=== PATIENT | male | born 1945 | race Caucasian/White ===

== ENCOUNTER → 2018-12-09 13:44 | Outpatient (CLI) | payer MEDICARE, SELFPAY ==
--- NOTE | 2018-12-09 | DI.CT.S_ITS ---
PROCEDURE: CT UE LT WO CON INDICATIONS: Primary osteoarthritis, left shoulder TECHNIQUE: Noncontrast 1-1.5 mm thick sections acquired from the acromioclavicular joint to the inferior scapula, with coronal and sagittal reformatting. COMPARISON: [facility] [place], CR, XR SHOULDER 2+ VIEWS LEFT, 11/19/2017, 17:11. FINDINGS: Image quality: Excellent. Bones: No fracture or focal osseous destruction. Severe left glenohumeral joint degeneration with subchondral sclerosis, marked spurring and narrowing of the joint space. There is bulky osteophyte formation in particular at the inferior margin of the humeral head. Degenerative cystic change present at the greater tuberosity. There is also severe AC joint degeneration with presumed ununited osteophyte or heterotopic ossification. There is diffuse osteopenia Soft tissues: Visualized portions of the left lung are clear, save for scattered scarring/atelectasis. No axillary lymphadenopathy. Heterotopic ossification versus loose bodies seen in the subcoracoid region. Coronary artery calcifications are present. IMPRESSION: Severe AC and glenohumeral joint degeneration with bulky osteophyte formation in particular at the inferior aspect of the humeral head. Additional areas of focal ossification present in the subcoracoid region could represent large loose body versus heterotopic ossification. Diffuse osteopenia. Dictated by: Jesus Manuel Lopez M.D. on 12/09/2018 at 15:01 Approved by: Jesus Manuel Lopez M.D. on 12/09/2018 at 15:05
== END ==
PROVIDERS: PCP Family Medicine; Visit Provider Orthopaedic Surgery
DX: M19.012 Primary osteoarthritis, left shoulder (principal); M85.812 Other specified disorders of bone density and structure, left shoulder
CPT/HCPCS: 73200

== ENCOUNTER 2019-01-25 11:03 | Inpatient (IN) | payer MEDICARE, SELFPAY ==
[2019-01-11 13:44] VITALS: BMI 26.9
[2019-01-25] VITALS (15 sets, daily range): BP systolic 116–158; BP diastolic 57–89; PULSE 60–78; RESP 13–20; TEMP 36.1–36.8; O2SAT 91–100; BMI 26.9
--- NOTE | 2019-01-25 06:00 | DI.RAD.S_ITS ---
PROCEDURE: XR SHOULDER LT 1V INDICATIONS: post op total shoulder TECHNIQUE: 3 views of the shoulder were acquired. COMPARISON: [facility] [place], CR, XR SHOULDER 2+ VIEWS LEFT, 11/19/2017, 17:11. FINDINGS: Bones: There is left shoulder arthroplasty with prosthesis in anatomic alignment. No fractures or dislocations. No suspicious bony lesions. Visualized ribs appear intact. Soft tissues: No suspicious soft tissue calcifications. IMPRESSION: Left shoulder arthroplasty with prosthesis in anatomic alignment. Dictated by: Lai Saab M.D. on 01/25/2019 at 16:38 Approved by: Lai Saab M.D. on 01/25/2019 at 16:39
[2019-01-25] MEDS: LACTATED RINGERS 1,000 ML 42 ML IV ×2 (11:00→14:26)
[2019-01-25] MEDS: PREGABALIN 75 MG CAPSULE PO (12:06)
[2019-01-25] MEDS: CELECOXIB 200 MG CAPSULE PO (12:06)
--- NOTE | 2019-01-25 12:10 | PM.PREOP ---
Pre-operative Note Interval Note History & Physical reviewed/Exam performed by Physician: Yes Changes to H&P: No
--- NOTE | 2019-01-25 12:48 | SUR.PREOP ---
Block start time [1231] . Monitoring initiated and maintained throughout procedure. Oxygen and medications given per anesthesiologist instructions. Patient remained stable throughout procedure, no adverse reactions noted. Block end time 1242
[2019-01-25] MEDS: CEFAZOLIN 2 GM/100 ML FROZ.PIGGY IV (12:50)
--- NOTE | 2019-01-25 13:17 | SUR.OPER ---
Beach chair with Gracie/Satnam shoulder positioner. Lower body on padded OR bed. Head in foam padded head cradle, secured with straps. Non-operative arm secured <90 degrees abduction. Pillow under knees. Safety belt at thigh. Cloth tape over blanket over lower legs.
[2019-01-25] MEDS: TRANEXAMIC ACID 1,000 MG VIAL 1000 MG INJ ×2 (13:23→14:15)
[2019-01-25] MEDS: BUPIVACAINE 0.5% W/ EPI (PF) VIAL 30 ML INJ (13:23)
[2019-01-25] MEDS: THROMBIN (RECOMBINANT) 5,000 UNIT VIAL 5000 UNIT TOP (13:24)
--- NOTE | 2019-01-25 13:36 | PM.PROC.1 ---
Procedures Date/Time Date of procedure: 01/25/19 Time of procedure: 12:30 General Procedure description: Ultrasound guided interscalene brachial plexus nerve block for post op pain control after left total shoulder arthroplasty by Dr. Mohamud. Risk and benefits of procedure discussed with patient. ASA monitoring applied to patient. 02 given via nasal cannula. 1 mg Versed and 50 mcg fentanyl given for procedural sedation. Skin site was prepped with chlorhexidine and allowed to fully dry. Sterile gloves, mask, hat and probe cover were used to maintain sterility. 2% lidocaine and 30ga needle was used to make a small skin wheal at needle insertion site. Under ultrasound guidance, a 21ga 50mm Pajunk needle was directed into the interscalene groove (middle/anterior scalenes) near the brachial plexus. Patient reported no parasthesias. After negative aspiration, 20 mL 0.5% ropivicaine and 10mg dexamethasone were injected around brachial plexus. Patient tolerated procedure well.
--- NOTE | 2019-01-25 15:17 | P.OP_ITS ---
Operative Date/Time/Diagnoses Date of procedure: 01/25/19 Time of procedure: 15:00 Pre-op diagnosis: Left shoulder osteoarthritis Post-op diagnosis: same Procedure & Clinicians Procedure: Left total shoulder replacement Same procedure as scheduled: Yes Indications: The patient has had progressively worsening left shoulder pain with radiographic changes consistent with arthritis. Non-operative management has failed and the patient has requested total shoulder replacement. The risks, benefits and alternatives to surgery were discussed with the patient prior to proceeding. Risks discussed included, but were not limited to, failure to relieve pain, stiffness, infection, nerve damage, deep venous thrombosis, pulmonary embolism, stroke, coma, heart attack, permanent paralysis and , as well as the potential need for eventual revision of the prosthetic. Surgeon: David Mohamud Consumer Affairs Manager: Graciela Ambriz Click Yes if Unassisted: No Anesthesia Type: General, Peripheral nerve block and Local Operative Notes Findings: Severe osteoarthritis with flattening of the humeral head and extremely large humeral osteophytes. Closure Type: primary Specimen(s): none sent Prosthetic devices, grafts, tissues, transplants, or devices: Implants used in this procedure were manufactured by the [employer] and included an Altivate short stem total shoulder system with a size 16 short stem, a neutral neck, a an offset 50 x 18 mm humeral head and a 50 mm all polyethylene E plus glenoid. Two glenoid were opened but only 1 was implanted. Applied: implant(s) Estimated Blood Loss (mL): 200 Blood products transfused: none Procedure in detail: The patient was seen in the pre-operative area, where the patient identified the left shoulder as the operative site and this was marked with my initials. The patient received pre-operative antibiotics, underwent an interscalene block, and was taken to the operating room and placed on the operative table in the supine position. After satisfactory anesthesia, a full ?time out? was performed. The patient was repositioned in the ?beach chair? position using a dedicated positioner. All pressure points were well padded, and the knees were slightly bent to prevent tension on the sciatic nerves. The left arm was prepared from the fingers to the base of the neck with ChloroPrep in the usual fashion and draped through sterile drapes. An approximately 15 cm incision was created, starting at the clavicle above the coracoid process and extended towards the deltoid insertion. The deltopectoral interval was used to access the shoulder. The cephalic vein was taken medially. A self retaining retractor was placed. The upper centimeter of the pectoralis major tendon was released. The ?three sisters? were identified and cauterized. The axillary nerve was palpated and protected throughout the case. The biceps was released from its groove and tenodesed over the top of the pectoralis major tendon. The subscapularis was released from the lesser tuberosity with a subscapularis peel and tagged for later repair. The shoulder was dislocated and a cutting guide was used for the proximal humeral osteotomy in 30 degrees of retroversion. A starter Reamer was used followed by the cylindrical reamers. This continued in larger sizes in till cortical bite was achieved. Sequential broaching was then performed until a line to line fit with the Reamer occurred. A proximal humeral protector was then placed. We then removed the self-retaining retractor and placed retractors to access the glenoid. The subscapularis was released with a ?360 degree release? with care being taken to protect the axillary nerve with the inferior portion of this procedure. The remnant of labrum and biceps stump were removed. The appropriate size reamer was chosen with the glenoid sizer, and the guide pin placed. The glenoid was appropriately reamed. The guide for the peripheral holes was used and the center hole enlarged. The trial glenoid was placed with good stability. We then cemented the final implant into place after irrigating the peg holes and drying them with thrombin-soaked Gelfoam. Unfortunately due to the patient's very tight shoulder access to the glenoid was difficult and the 1st glenoid prosthetic did not fully seat. This was removed, the peg holes were cleaned of bone cement using a drill and the glenoid implantation was repeated, this time successfully, with a 2nd prosthetic. We returned our attention to the humerus, a trial humeral head was applied and a trial reduction performed. Stability was checked with 50% posterior translation with spontaneous reduction, 45? external rotation at the side with the subscapularis in the repaired position and 70? internal rotation in the ?scarecrow position?. This was felt to be satisfactory and the appropriate implants were opened. Five holes were drilled along the humeral osteotomy and #2 TiCron sutures placed for eventual subscapularis repair. The humeral prosthetic was impacted into the humerus. The humeral head was applied when the stem was still slightly proud and impacted to both seat the head and fully seat the stem. The joint was relocated one final time. The joint was irrigated and the subscapularis repaired to the previously placed sutures using Alli-Charles sutures. The top of the subscapularis was closed to the leading edge of the supraspinatus with a figure of 8 #2 TiCron to close the rotator interval. A deep drain was placed and brought out supero-laterally. The deltopectoral interval was closed with interrupted 0 Vicryl. The subcutaneous layer was closed with 3-0 Vicryl, and the skin with a running 3-0 V-Lock suture and SteriStrips. An Aquacel Ag dressing was applied, the patient?s arm was placed in a sling, and the patient was taken to recovery having tolerated the procedure well. Complications: other (Incomplete seating of the 1st in glenoid prosthetic. This was addressed as noted in the procedure paragraphs above) Condition: stable Disposition: PACU Plan for aftercare: The patient will be maintained on a standard total shoulder replacement protocol with passive range of motion limited to 90 degrees forward flexion, 0 degrees external rotation at the side, 0 degrees abduction and internal rotation to the body. The patient will receive aspirin and sequential compression devices for DVT prophylaxis. The patient will be discharged home when safe for the home environment, likely tomorrow.
--- NOTE | 2019-01-25 15:46 | SUR.PHASEI ---
REPORT CALLED TO POONAM MELENDEZ ON ICU FLOOR. PT IN STABLE CONDITION, VSS. IV SITE CLEAR AND INFUSING WITHOUT DIFFICULTLY. DRSG TO SURGICAL SITE OBSERVED TO BE C/D/I. HEMAVAC IN PLACE AND INTACT. PT DENIES ANY NAUSEA OR PAIN/DISCOMFORT AT THIS TIME. PT SITTING UP IN BED AND TALKING TO RN. PT APPEARS COMFORTABLE AT THIS TIME.
--- NOTE | 2019-01-25 15:54 | SUR.PHASEI ---
PT TRANSFERRED TO ICU IN STABLE CONDITION BY POONAM WILCOX.
--- NOTE | 2019-01-25 16:04 | PC.NURSE ---
Addendum entered by Lizette Rush R.N. 01/25/19 19:13: 1912 - Patient transferred to room 219. Taken upstairs in wheelchair with all belongings by nursing staff. Report given to receiving RN Amber. Original Note: 1600 - Patient brought over from PACU in bed by nursing staff. Alert and oriented with pleasant affect. Denies pain or nausea at this time. Able to move all extremities, but states he has some numbness to left arm and hand. Dressing to left shoulder C/D/I. Hemovac in place draining sanguinous fluid and sling in place. Oriented to room and call light. Call light within reach. at bedside.
[2019-01-25] MEDS: LACTATED RINGERS 1,000 ML 125 ML IV (16:38)
[2019-01-25] MEDS: ACETAMINOPHEN 325 MG TABLET PO ×2 (16:39→20:17)
[2019-01-25] MEDS: ASPIRIN EC 81 MG TABLET PO (20:14)
[2019-01-25] MEDS: DOCUSATE 100 MG CAPSULE PO (20:14)
[2019-01-25] MEDS: GABAPENTIN 300 MG CAPSULE 900 MG PO (20:15)
--- NOTE | 2019-01-25 20:58 | PC.NURSE ---
Pt arrived from ICU via W/C. Denies any discomfort at this time. Dsg to left shoulder CDI, arm in sling. IV LR @ 125cc/hr via pump into RFA infusing w/o incidence. Hemavac intact/patent. Stable post op course. Call light w/in reach. Bed alarm on for pt safety. Continue w/plan of care.
[2019-01-26] MEDS: LACTATED RINGERS 1,000 ML 125 ML IV (01:04)
[2019-01-26] MEDS: ACETAMINOPHEN 325 MG TABLET PO ×3 (03:08→08:26)
[2019-01-26] MEDS: OXYCODONE IR 5 MG TABLET PO (03:44)
[2019-01-26 05:21] LABS: Hematocrit 37.8 % (41-53); Hemoglobin 12.8 g/dL (13.5-17.5); Mean Corpuscular Hemoglobin 32.6 PG (26-34); Mean Corpuscular Volume 95.8 fL (80-100); Platelet Count 184 X10^3/uL (150-400); Red Blood Cell Count 3.94 X10^6/uL (4.5-5.9); Red Cell Distribution Width 13.2 % (11.6-14.8)
[2019-01-26 05:58] VITALS: BP 131/76; PULSE 62; RESP 16; TEMP 36.3; O2SAT 96
[2019-01-26 07:40] VITALS: BP 136/68; PULSE 65; RESP 15; TEMP 36.3; O2SAT 96
[2019-01-26] MEDS: ASPIRIN EC 81 MG TABLET PO (08:27)
[2019-01-26] MEDS: DOCUSATE 100 MG CAPSULE PO (08:27)
[2019-01-26] MEDS: MELOXICAM 7.5 MG TABLET 15 MG PO (08:27)
[2019-01-26] MEDS: LORATADINE 10 MG TABLET PO (08:27)
--- NOTE | 2019-01-26 09:20 | PT.IIE ---
Current Diagnoses Primary osteoarthritis, right shoulder (01/25/19) Surgery Performed Operation Date: 01/25/19 13:15 Actual Procedures p Total Shoulder Arthroplasty(Left) - David Mohamud MD Surgical History (Last Updated 01/11/19 @ 14:26 by Nemo Villanueva RN) History of colonoscopy (Acute) Hx of toe surgery (Acute) Hx of tonsillectomy (Acute) Medical History (Last Updated 01/11/19 @ 14:25 by Nemo Villanueva RN) Arthritis (Acute) GERD (gastroesophageal reflux disease) (Acute) Hearing impaired (Acute) Insomnia (Acute) Lower back pain (Acute) Numbness (Acute) Osteoarthritis (Acute) RLS (restless legs syndrome) (Acute) Trigger finger, left (Acute) Physical Therapy Inpatient Evaluation/Re-Eval M1 PT/OT-IP Prior Functional Status Start: 01/26/19 12:43 Freq: NEEDED Status: Active Protocol: Document 01/26/19 12:44 [facility] (Rec: 01/26/19 13:01 [facility] [id number]) Medical Review Prior Functional Status Medical History Reviewed Yes Communication Independent. Mobility and Gait Independent with no device. Activities of Daily Living and IADL's Independent. Prior Functional Level (Other details) Pt was independent with all needs prior. Social History Household Members spouse children Living Arrangements House Number of Floors (Floors) One Floor Number of Stairs To Enter/Railing? One step. Home Environment High Toilet Tub/Shower Home Equipment Hand Held Shower M1 PT/OT-IP Prior Functional Status Start: 01/26/19 13:04 Freq: NEEDED Status: Active Protocol: Document 01/26/19 09:20 AB (Rec: 01/26/19 13:13 AB [id number]) Medical Review Prior Functional Status Medical History Reviewed Yes Communication able to make needs known Mobility and Gait pt stated that he is independent with all mobilities and ambulation without AD Social History Household Members spouse children Living Arrangements House Number of Floors (Floors) One Floor Number of Stairs To Enter/Railing? One step to enter Home Environment High Toilet Tub/Shower Home Equipment Tub Transfer Clear Coat Sprayer Held Shower Employment Status Retired Additional Social History Comment pt has an adjustable bed M2 PT-IP Current Condition Start: 01/26/19 13:04 Freq: NEEDED Status: Active Protocol: Document 01/26/19 09:20 AB (Rec: 01/26/19 13:13 AB [id number]) Physical Therapy Current Condition Current Condition Evaluation Date 01/26/19 Treatment Diagnosis s/p L TSR; difficulty in walking Onset Date 01/25/19 Precautions Shoulder Precautions Sling PROM Internal Rotation to Body No External Rotation No Abduction Forward Flexion to 90 degrees Pendulums Brace L sling M3 PT-IP Subjective Start: 01/26/19 13:04 Freq: NEEDED Status: Active Protocol: Document 01/26/19 09:20 AB (Rec: 01/26/19 13:13 AB [id number]) Subjective Physical Therapy Visit Type Type Initial Evaluation Visit Start Time 09:20 Visit Stop Time 10:00 Total Visit Minutes 40 Number of ACCOUNTING INTERN Visits 0 Physical Therapy Visit Comments Patient Comments pt agreeable to do PT Therapy Pain Assessment Pain Present Pain Present Denied Pain M4 PT-IP Mobility and Gait Start: 01/26/19 13:04 Freq: NEEDED Status: Active Protocol: Document 01/26/19 09:20 AB (Rec: 01/26/19 13:13 AB [id number]) PT-Bed Mobility Assessment Supine to Sit Supine to Sit Independent Sit to Supine Sit to Supine Independent Scooting Scooting to Edge of Bed Standby Assistance Scooting Up and Down in Bed Standby Assistance PT-Transfer Assessment Sit to and From Stand Sit to and from Stand Independent Equipment Transfer Assistive Device None Gait Belt Orthotic/Prosthetic Devices or Brace: Yes Transfer Ability Level of Assist Standby Assistance Gait Assessment Gait Gait Assistance Required: Standby Assistance Distance (Feet) 200 Able to Maintain Weight Bearing Status No During Gait Assistive Devices Assistive Device Gait Belt Front Wheeled Walker Orthotic/Prosthetic Devices or Brace: Yes Factors Limiting Gait Function Factors Limiting Gait Function Limited Range of Motion Comments Gait Comments L sling on Stair Climbing Assessment Evaluation Level of Assist On Stairs Standby Assistance Devices Stair Climbing Assistive Devices None Technique/Endurance Stair Climbing Direction Ascend and Descend Stair Climbing Technique Step Over Step Number of Steps Climbed 3 Query Text: Stair Climbing Set # Repetitions (reps) 1 PT-Balance Assessment Sitting Balance and Reactions Static Sitting Balance Ability Good Dynamic Sitting Balance Ability Good Standing Balance and Reactions Static Standing Balance Ability Good Dynamic Standing Balance Ability Fair Device Used without AD M5 PT-IP Objective Assessments Start: 01/26/19 13:04 Freq: NEEDED Status: Active Protocol: Document 01/26/19 09:20 AB (Rec: 01/26/19 13:13 AB [id number]) Orientation Orientation/Cognition Level of Alertness Alert Orientation Name Age Birthday Month Date Year Day of Week Place Situation Language Function Ability No Deficits Noted Safety Awareness Decreased Safety Awareness Memory Description No Deficits Noted Comments have to be reminded of L shoulder precautions Gross Range of Motion Lower Extremity ROM Assessment Within Functional Limits Strength Lower Extremity Strength Assessment Within Functional Limits Coordination Assessment Gross Coordination Gross Coordination WNL Sensation Assessment Sensation Gross Sensation WNL Muscle Tone Muscle Tone WNL Yes M6 PT-IP Treatment Start: 01/26/19 13:04 Freq: NEEDED Status: Active Protocol: Document 01/26/19 09:20 AB (Rec: 01/26/19 13:13 AB [id number]) Physical Therapy Treatment Education Education Provided Precautions Weight Bearing Status Safety Brace Education Don[place] Patient Caregiver Other Treatments Other Treatment Performed educated pt and spouse on donning/doffing of L shoulder sling. spouse assisted pt with sling and was able to todd with cues M7 PT-IP Assessment and Plan Start: 01/26/19 13:04 Freq: NEEDED Status: Active Protocol: Document 01/26/19 09:20 AB (Rec: 01/26/19 13:13 AB [id number]) PT Summary Assessment and Plan Potential Rehabilitation Potential Good Status of Condition at Evaluation Stable Summary Impairments Pain ROM Strength Balance Coordination Sensation Tone Cognition Bed Mobility Transfers Gait Activity Tolerance Assessment Summary pt requiring SBA with mobility and plans to go home with spouse to assist him. pt requiring SBA with mobility and may go home when medically stable. Goals Transfer Goal Independent Gait Goal Independent Gait Distance 300 Other Goals up/down 1 step without rails Days to Meet Goals 3 Frequency of Treatment Frequency Of Treatment Twice a Day Treatment Plan Physical Therapy Treatment Plan Bed Mobility Training Transfer Training Gait Training Therapeutic Exercise Balance Retraining Post Op Education Discharge Planning Hot or Cold Pack Neuromuscular Re-ed Coordination Retraining Manual Therapy Recommendations To Nursing Amount of Assist Needed Standby Assistance Discharge Recommendations PT Discharge Recommendations Home with Assistance
--- NOTE | 2019-01-26 09:42 | PM.DS.1 ---
History of Present Illness Date Patient Seen: 01/26/19 Time Patient Seen: 09:43 Chief complaint: [id number] Narrative: Hospital day 2, postop day 1 following left total shoulder arthroplasty by Dr. Mohamud. Patient has remained stable postoperatively. Pain controlled with oxycodone 5 mg and Tylenol. Patient feels he is ready for discharge home today. He is scheduled to go to [facility] in [place]. Discharge Providers Date of admission: 01/25/19 11:03 Discharge Date: 01/26/19 Primary care physician: Julissa Hodge MD Consults: 01/25/19 16:00 Consult to Discharge Planning Routine Comment: Consult to Physical Therapy Evaluate & Treat Comment: Physician Instructions: Evaluate and Treat 01/26/19 09:42 Consult to Occupational Therapy Evaluate & Treat Comment: Physician Instructions: Evaluate and treat Discharge provider: Yordy Saldivar PA-C Summary Discharge Diagnosis: Status post left total shoulder arthroplasty Hospital Course: Patient brought to hospital on 01/25/2019 for above-noted surgery. He remained stable postoperatively. Progressed well next day with good pain control. Ready for discharge home on postop day 1. Status at Discharge Cognitive/behavioral status at discharge: oriented Overall status at discharge: patient is progressing back to baseline Time Spent with Patient Less than 30 minutes Exam Vital Signs (past 8 hours): - 01/26/19 05:58 01/26/19 07:40 Temperature 97.4 F L 97.3 F L Pulse Rate 62 65 Respiratory Rate 16 15 Blood Pressure 131/76 136/68 Pulse Oximetry 96 96 Oxygen Delivery Method Room Air Oxygen Flow Rate 0 Narrative Exam Narrative: Alert, oriented no acute distress resting in bed. Left shoulder. Aquacel dressing in place is dry without drainage or inflammation. Hemovac in place with decreased drainage. Arm is in sling. Hand Bander strong and equal. Good pulses and sensation to the hands. Objective Labs Result Diagrams: 01/26/19 04:50 Labs: Laboratory Results - last 24 hr 01/25/19 01/26/19 16:18 04:50 WBC 11.0 RBC 3.94 L Hgb 12.8 L Hct 37.8 L MCV 95.8 MCH 32.6 MCHC 34.0 RDW 13.2 Plt Count 184 Nasal Screen MRSA (PCR) Negative for mrsa Discharge Plan Discharge Plan Patient Disposition: Home Discharge comment: DC to home today after cleared by PT/OT. Patient will use a sling for 6 weeks postop. Discharge Med Rec/Prescriptions Prescriptions: New acetaminophen 325 mg Tablet 325 mg PO Q4HR Qty: 30 RF: 0 aspirin 81 mg Tablet,Delayed Release (Dr/Ec) 81 mg PO BID Qty: 60 RF: 0 oxycodone 5 mg Tablet 5 mg PO Q3HR PRN (Reason: Pain, Moderate (4-6)) Qty: 30 RF: 0 Continued cetirizine [Aller-Kristin] 10 mg Tablet 10 mg PO DAILY RF: 0 meloxicam 15 mg Tablet 15 mg PO DAILY RF: 0 acetaminophen [Tylenol Arthritis Pain] 650 mg Tablet Extended Release 1,300 mg PO BEDTIME RF: 0 niacin 500 mg Tablet 500 mg PO BID RF: 0 gabapentin 300 mg Capsule 900 mg PO BEDTIME RF: 0 famotidine 20 mg Tablet 20 mg PO DAILY PRN (Reason: gerd) RF: 0 Follow up/Referrals: Julissa Hodge MD [Primary Care Provider] - Provider Discharge Instructions Diet: Diet as Tolerated Skin/Wound/Dressing Care Report to your healthcare provider any signs of infection, such as:: chills, fever, night sweats, increased pain, unusual drainage and unusual redness Dressing: Keep Aquacel dressing in place until postop visit. Patient may shower with dressing in place. Visit Report/Discharge Packet Instructions: DI for Shoulder Replacement Discharge Data Primary Care Provider: Julissa Hodge Attending Provider: David Mohamud Admit Date/Time: 01/25/19 11:03
[2019-01-26] MEDS: OXYCODONE IR 5 MG TABLET 10 MG PO (10:21)
--- NOTE | 2019-01-26 10:21 | CM.DANOTE ---
DCP: Case received, EMR reviewed and met with patient. Introduced self and role. Obtained information from patient regarding baseline history. DCP template assessment completed with information currently available. Patient is a 73 year old male who admitted yesterday morning to the care of the orthopedic team. PCP: Dr. Hodge. Payer: confirmed: [employer] Medicare. Patient came to the hospital for a surgical procedure. He had L. total shoulder arthroplasty. Patient has chronic history of l. shoulder pain and arthritis. Met with patient, pleasant, alert and oriented. He resides at home with his , Mary Ellen, who is a retired home health nurse. Patient is independent at home, and has outpatient physical therapy already set up. P: Patient will be working with physical therapy today. Could potentially be discharged home today. Tresa Cardoso RN/Teletypist
--- NOTE | 2019-01-26 10:38 | PC.NURSE ---
Day shift: Pt left unit by ambulating. He did not want to use WC. Paperwork signed and all questions answered. Pt has MD script. Pt has all personal belongings. Obed is CDI.
--- NOTE | 2019-01-26 13:01 | OT.IP.EVAL ---
Current Diagnoses Primary osteoarthritis, right shoulder (01/25/19) Surgery Performed Operation Date: 01/25/19 13:15 Actual Procedures p Total Shoulder Arthroplasty(Left) - David Mohamud MD Past Medical History (Last Updated 01/11/19 @ 14:25 by Nemo Villanueva, RN) Arthritis (Acute) GERD (gastroesophageal reflux disease) (Acute) Hearing impaired (Acute) Insomnia (Acute) Lower back pain (Acute) Numbness (Acute) Osteoarthritis (Acute) RLS (restless legs syndrome) (Acute) Trigger finger, left (Acute) Surgical History (Last Updated 01/11/19 @ 14:26 by Nemo Villanueva RN) History of colonoscopy (Acute) Hx of toe surgery (Acute) Hx of tonsillectomy (Acute) Occupational Therapy Inpatient Evaluation/Re-Eval M1 PT/OT-IP Prior Functional Status Start: 01/26/19 12:43 Freq: NEEDED Status: Active Protocol: Document 01/26/19 12:44 [facility] (Rec: 01/26/19 13:01 [facility] [id number]) Medical Review Prior Functional Status Medical History Reviewed Yes Communication Independent. Mobility and Gait Independent with no device. Activities of Daily Living and IADL's Independent. Prior Functional Level (Other details) Pt was independent with all needs prior. Social History Household Members spouse children Living Arrangements House Number of Floors (Floors) One Floor Number of Stairs To Enter/Railing? One step. Home Environment High Toilet Tub/Shower Home Equipment Hand Held Shower M2 OT-IP Current Condition Start: 01/26/19 12:43 Freq: Status: Active Protocol: Document 01/26/19 12:44 [facility] (Rec: 01/26/19 13:01 [facility] [id number]) Occupational Therapy Current Condition Current Condition Evaluation Date 01/26/19 Treatment Diagnosis s/p left TSA, muscle weakness Diagnosis Onset Date 01/25/19 Post Operative Precautions Shoulder Precautions Sling Internal Rotation to Body No External Rotation No Abduction Forward Flexion to 90 degrees M3 OT- IP Subjective and Pain Start: 01/26/19 12:43 Freq: Status: Active Protocol: Document 01/26/19 12:44 [facility] (Rec: 01/26/19 13:01 [facility] [id number]) OT- Subjective Occupational Therapy Visit Type Type Initial Evaluation Visit Start Time 09:55 Visit Stop Time 10:20 Total Visit Minutes 25 Occupational Therapy Visit Comments Patient Comments Pt ready to go home and and states ready to go. OT Pain Assessment Pain When Pain Assessed At Rest Pain Present Pain Present Denied Pain M4 OT- IP ADL's Start: 01/26/19 12:43 Freq: Status: Active Protocol: Document 01/26/19 12:44 [facility] (Rec: 01/26/19 13:01 [facility] [id number]) OT ADL-Dressing General Eval Upper Body Dressing Ability Maximum Assistance Lower Body Dressing Ability Minimal Assistance Comments OT Dressing Comments MAX A for sling management and pt's able to demonstrate good safety and awareness how to todd and doff sling and for clothing. OT ADL-Toileting Comments OT Toileting Comments Pt able to get off and on the toilet on his own. OT ADL-Bathing Comments OT Bathing Comments Pt states rather shower at home. Pt has a tub bench at home in addition to HHSP. M5 OT- IP IADL's Start: 01/26/19 12:43 Freq: Status: Active Protocol: Document 01/26/19 12:44 [facility] (Rec: 01/26/19 13:01 [facility] [id number]) OT-Instrumental Activities of Daily Living Medication Management Medication Management No Deficits Identified Money Management Money Management No Deficits Identified M6 OT- IP Functional Cognition Start: 01/26/19 12:43 Freq: Status: Active Protocol: Document 01/26/19 12:44 [facility] (Rec: 01/26/19 13:01 [facility] [id number]) Cognitive Factors Limiting Selfcare Function Cognitive Ability Level of Alertness Alert Attention Span Ability Capable of Focused Attention Capable of Sustained Attention Ability to Follow Commands Able to Follow Multi-Step Commands Memory Description No Deficits Noted Safety Awareness Underestimates Need for Assistance Cognitive Comments Cognitive Assessment Comments pt needing vc to slow down and to be sure not to move his shoulder. OT- Vision and Hearing OT- Hearing Assessment OT- Hearing Assessment WFL M7 OT- IP Mobility and Balance Start: 01/26/19 12:43 Freq: Status: Active Protocol: Document 01/26/19 12:44 [facility] (Rec: 01/26/19 13:01 [facility] [id number]) OT- Bed Mobility Assessment Rolling Level of Assistance Standby Assistance Supine to Sit Supine to Sit Assist Standby Assistance Sit to Supine Sit to Supine Assist Standby Assistance OT-Transfer Assessment Sit to and From Stand Sit to and from Stand Standby Assistance Transfers Transfer Ability Standby Assistance Technique Transfer Destination Bed Chair Devices Transfer Assistive Devices None Comments Mobility Comments SBA in the room. OT- Balance Assessment Sitting Balance and Reactions Static Sitting Balance Ability Normal Dynamic Sitting Balance Ability Normal Standing Balance and Reactions Static Standing Balance Ability Good M8 OT- IP Objective Assessments Start: 01/26/19 12:43 Freq: Status: Active Protocol: Document 01/26/19 12:44 [facility] (Rec: 01/26/19 13:01 [facility] [id number]) OT Gross Range of Motion Upper Extremity Range of Motion Assessment Left Impaired OT Strength Upper Extremity Strength Assessment Left Impaired M9 OT- IP Assessment and Plan Start: 01/26/19 12:43 Freq: Status: Active Protocol: Document 01/26/19 12:44 [facility] (Rec: 01/26/19 13:01 [facility] [id number]) OT Summary Assessment and Plan Potential Rehabilitation Potential Good Analytic Complexity at Evaluation Low Summary OT Impairments Pain Dressing Bathing Progress Towards Goals Safe For Discharge Assessment Summary Pt low complexity and pt's able to demonstrate good safety and awareness to assist pt for all ADL needs. Pt to go home. Goals Patient/Caregiver Education Goal Demonstrate Post-Op Precautions Caregiver Independent Assisting Patient Days to Meet Goals 1 Frequency of Treatment Frequency Of Treatment Once a Day Treatment Plan OT Treatment Plan Patient/Family Education Discharge Planning Discharge Recommendations OT Discharge Recommendations Home with Assistance Outpatient PT
== END 2019-01-26 10:44 | disposition home or self-care (01) | DRG 483 ==
LOC: AC 11:54 → ICU 13:39 → AC 19:22
PROVIDERS: Admitting Provider Orthopaedic Surgery; PCP Family Medicine; Visit Provider Orthopaedic Surgery
PROC: 0RRK0JZ Replacement of Left Shoulder Joint with Synthetic Substitute, Open Approach (ICD-10-PCS; CPT 23472; principal; 2019-01-25 13:15)
DX: M19.012 Primary osteoarthritis, left shoulder (principal); M25.712 Osteophyte, left shoulder
CPT/HCPCS: 64450; 73020; 85027; 87797; 97161; 97165; 97530; C1776; J0690; J1100; J2250; J2405; J2704; J3010